=== PATIENT | male | born 1995 | race Caucasian/White ===

== ENCOUNTER → 2022-01-03 09:02 | Outpatient (BNVA) | payer SELFPAY | PROVIDERS: Visit Provider Internal Medicine | DX: Z02.79 Encounter for issue of other medical certificate (principal) ==

== ENCOUNTER 2024-02-09 17:28 | Emergency (ER) | payer BC, SELFPAY ==
--- NOTE | ~2024-02-09 | XR_ITS ---
EXAMINATION: XR CHEST CLINICAL INFORMATION: Chest pain. COMPARISON: None available. TECHNIQUE: Frontal view of the chest was obtained. FINDINGS: The heart is normal in size. The lungs are clear. There is no pleural effusion or pneumothorax. No acute osseous abnormality. XR/XR chest 1V IMPRESSION: No acute cardiopulmonary disease.
--- NOTE | 2024-02-09 17:30 | ECG_ITS ---
Test Reason : CHEST PAIN Blood Pressure : / mmHG Vent. Rate : 068 BPM Atrial Rate : 068 BPM P-R Int : 150 ms QRS Dur : 096 ms QT Int : 368 ms P-R-T Axes : 054 048 040 degrees QTc Int : 391 ms Normal sinus rhythm Normal ECG No previous ECGs available Referred By: Generic ED Physician Electronically Signed By:Dank Shah
[2024-02-09 17:46] VITALS: BP 128/90; PULSE 72; RESP 18; TEMP 36.6; O2SAT 100; BMI 31.3
--- NOTE | 2024-02-09 17:58 | ED_ITS ---
HPI - Chest Pain General Chief Complaint: Chest Pain Stated Complaint: Chest tightness, sob Time Seen by Provider: 02/09/24 17:45 History of Present Illness HPI narrative: Patient is a 28-year-old male presents today with having chest pain. The chest pain is left-sided. Goes to the left arm. Not associated with any shortness breath not associated with any diaphoresis has been fairly consistent since 06:00. Patient's denies any worsening symptoms with deep breath. There has no leg pain. There has no pain with exertion. Works as a radio mechanic. No history of long distance travel. No history of cancer. No history of diabetes, hypertension, high cholesterol, smoking, mi. No family history of coronary artery disease. No coughing or congestion or upper respiratory symptoms. Pain has been persistent for the last 12 hours. Related Data Allergies Allergy/AdvReac Type Severity Reaction Status Date / Time azithromycin Allergy Hives Verified 02/09/24 17:55 Penicillins [PCN] Allergy Hives Verified 02/09/24 17:55 Review of Systems 2 Review of Systems: Positive chest pain Yes all other systems are reviewed and are negative [facility] Past Medical History Attestation statement: The following information was validated with the patient. Social History Social History Smoked in Last 30 Days: Yes Use of substances other than those prescribed or required for medical reasons: No Advance Directives: No Advance Directives Information Provided: No Do you have a plan to hurt others: No Plan Physical Exam 2 Vital Signs: Vital Signs: Last Vital Signs Temp 97.7 F 02/09/24 18:52 Pulse 63 02/09/24 18:52 Resp 16 02/09/24 18:52 BP 112/71 02/09/24 18:52 Pulse Ox 99 02/09/24 18:52 O2 Del Method Room Air 02/09/24 18:52 BMI result Body Mass Index 31.3 Appearance: Alert. Oriented X3. No acute distress. Eyes: Pupils equal, round and reactive to light. ENT: Pharynx normal. Neck: Normal inspection. Neck supple. No lymph nodes noted. No crepitus CVS: Normal heart rate and rhythm. Pulses normal. Normal S1 and S2 Respiratory: No respiratory distress. Breath sounds normal. No Wheezing. No rales Abdomen: Soft and nontender. No rigidity. No distention. good BS x4 Skin: Skin warm and dry. Normal skin color. Normal skin turgor. Extremities: No lower extremity edema. Neurovascular intact to all extremities. No Lacerations. No Rash Neuro: Oriented X 3. No motor deficit. No sensory deficit. Moving all extermities. No slurred speech Medications Administered Discontinued Medications Generic Name Dose Route Start Last Admin Trade Name Freq PRN Reason Stop Dose Admin Aspirin 324 mg 02/09/24 17:57 02/09/24 18:07 Aspirin 81 Mg Tab.Chew PO 02/09/24 17:58 324 mg ONCE ONE Administration Medical Decision Making Medical Decision Making [facility] Narrative: Patient's chest pain atypical. Has a history of hypertension only. No other significant cardiac risk factors. Patient's EKG by my interpretation showed a sinus pattern heart rate is 70 ND QRS QTC is normal there has no acute ST segment elevation. Patient is chest x-ray by my interpretation showed no evidence of pneumonia no pneumothorax. I reviewed radiology's reading. Patient's heart score is less than 3. Will have patient follow-up on an outpatient basis. Currently in stable condition. Differential Diagnosis Differential Diagnoses: The differential diagnosis associated with the presentation includes ACS, pneumonia, pneumothorax, musculoskeletal chest pain, reflux Admission/Observation Consideration of admission/observation: Escalation of care including admission/observation considered Lab Data [facility] Lab Attestation statement: I reviewed the patient's lab results. 02/09/24 18:13 02/09/24 18:13 Labs: Lab Results 02/09/24 02/09/24 Range/Units 18:13 20:01 WBC 7.0 (4.8-10.8) X10*3/uL RBC 5.07 (4.60-5.80) X10*6/uL Hgb 15.0 (14.0-18.0) g/dl Hct 43.0 (42.0-52.0) % MCV 84.8 (80.0-98.0) fL MCH 29.6 (27.0-33.0) pg MCHC 34.9 (31.0-36.0) g/dl RDW 12.2 (11.0-16.0) % Plt Count 249 (160-400) X10*3/uL MPV 9.6 (9.4-12.4) fL Immature Gran % (Auto) 0.1 (0.0-0.4) % Neut % (Auto) 64.8 (45-73) % Lymph % (Auto) 26.5 (20-40) % [place] % (Auto) 6.0 (2-11) % Eos % (Auto) 2.0 (0-4) % Baso % (Auto) 0.6 (0-2) % Lymph # (Auto) 1.8 (1.2-4.9) X10*3/uL [place] # (Auto) 0.4 (0.1-1.2) X10*3/uL Eos # (Auto) 0.1 (0.0-0.4) X10*3/uL Baso # (Auto) 0.0 (0.0-0.2) X10*3/uL Abs Immat Gran (auto) 0.01 (0.00-0.03) X10*3/uL Absolute Neuts (auto) 4.5 (2.0-8.3) x10*3/uL Absolute Nucleated RBC 0.000 (0.0-0.012) X10*3/uL Nucleated RBC % (auto) 0.0 (0.0-0.2) /100WBC D-Dimer High Sensitivty < 150 NG/ML Sodium 140 (135-145) mmol/L Potassium 3.6 (3.3-5.1) mmol/L Chloride 104 (96-108) mmol/L Carbon Dioxide 25 (22-29) mmol/L Anion Gap 15 (12-20) BUN 9 (9-16) mg/dL Creatinine 0.81 (0.5-1.4) mg/dL Estim Creat Clear Calc 138.5 Estimated GFR > 60 Random Glucose 89 (60-115) mg/dL Calcium 9.8 (8.4-10.2) mg/dL Total Bilirubin 1.0 (0.0-1.0) mg/dL Direct Bilirubin 0.2 (0.0-0.5) mg/dL AST 22 (5-37) U/L ALT 20 (0-40) U/L Alkaline Phosphatase 54 (39-117) U/L Troponin I High Sens < 2.7 < 2.7 (<3.5-35.0) ng/L Total Protein 7.4 (6.5-8.0) g/dL Albumin 4.8 (3.5-5.0) g/dL Independent Interpretation I performed an independent interpretation of an: EKG (Sinus heart rate is 70 ND QRS QTC within normal limits is no acute ST segment elevation) Radiology Impression Discussion of test interpretation with radiology: I have reviewed the radiologist's reading. Chronic Conditions Patient?s care impacted by: Hypertension Discharge Plan Discharge Clinical Impression: Chest pain Patient Disposition: Home, Self-Care Instructions: Chest Pain (ED) Print Language: Upper Sorbian
[2024-02-09] MEDS: Aspirin 81 MG TAB.CHEW 324 MG PO (18:07)
--- NOTE | 2024-02-09 18:08 | MHC.EDTECH ---
Duplicate order for EKG, per Dr. Nava there does not need to be a repeat EKG at this time
[2024-02-09 18:17] VITALS: PULSE 64
[2024-02-09 18:19] LABS: MANUAL DIFF FLAG NO
[2024-02-09 18:25] LABS: Basophils Percent Auto 0.6 % (0-2); Eosinophils Absolute Auto 0.1 X10*3/uL (0.0-0.4); Imm Gran Abs Auto 0.01 X10*3/uL (0.00-0.03); Imm Gran Pct Auto 0.1 % (0.0-0.4); Lymphocytes Absolute Auto 1.8 X10*3/uL (1.2-4.9); Lymphocytes Percent Auto 26.5 % (20-40); Mean Corpuscular HGB Conc 34.9 g/dl (31.0-36.0); Mean Corpuscular Hemoglobin 29.6 pg (27.0-33.0); Mean Corpuscular Volume 84.8 fL (80.0-98.0); Mean Platelet Volume 9.6 fL (9.4-12.4); Monocytes Absolute Auto 0.4 X10*3/uL (0.1-1.2); Neutrophils Absolute Auto 4.5 x10*3/uL (2.0-8.3); Neutrophils Percent Auto 64.8 % (45-73); Platelet Count 249 X10*3/uL (160-400); Red Blood Count 5.07 X10*6/uL (4.60-5.80); Red Cell Distribution Width 12.2 % (11.0-16.0)
[2024-02-09 18:36] LABS: Alanine Aminotransferase 20 U/L (0-40); Albumin Level 4.8 g/dL (3.5-5.0); Alkaline Phosphatase 54 U/L (39-117); Anion Gap 15 (12-20); Aspartate Amino Transferase 22 U/L (5-37); Bilirubin Direct 0.2 mg/dL (0.0-0.5); Blood Urea Nitrogen 9 mg/dL (9-16); Calcium 9.8 mg/dL (8.4-10.2); Carbon Dioxide 25 mmol/L (22-29); Chloride 104 mmol/L (96-108); Creatinine Clr Calc Pharmacy 138.5; Estimated Glomerular Filt Rate > 60; Glucose Random 89 mg/dL (60-115); Potassium 3.6 mmol/L (3.3-5.1); Sodium 140 mmol/L (135-145); Total Protein 7.4 g/dL (6.5-8.0)
[2024-02-09 18:37] LABS: D Dimer High Sensitivity < 150 NG/ML
[2024-02-09 18:46] LABS: Troponin-I High Sensitivity < 2.7 ng/L (<3.5-35.0)
[2024-02-09 18:52] VITALS: BP 112/71; PULSE 63; RESP 16; TEMP 36.5; O2SAT 99
[2024-02-09 20:34] LABS: Troponin-I High Sensitivity < 2.7 ng/L (<3.5-35.0)
[2024-02-09 20:55] VITALS: BP 128/75; PULSE 74; RESP 16; TEMP 36.5; O2SAT 98
== END 2024-02-09 20:56 | disposition home or self-care (01) ==
PROVIDERS: Emergency Provider Emergency Medicine Emergency Medical Services
DX: R07.9 Chest pain, unspecified (principal)
CPT/HCPCS: 36415; 71045; 80048; 80076; 84484; 85025; 85379; 93005; 99283; 99285

== ENCOUNTER → 2024-02-09 17:30 | Outpatient (BNV) | payer BC, SELFPAY | PROVIDERS: Emergency Provider Emergency Medicine Emergency Medical Services; Visit Provider Internal Medicine Cardiovascular Disease | DX: R07.9 Chest pain, unspecified (principal) | CPT/HCPCS: 93010 ==